=== PATIENT | female | born 1965 | race Hispanic/Latino ===

== ENCOUNTER 2017-03-01 16:19 | Inpatient (IN) | payer MEDICAID, OTHER ==
[2017-03-01 16:19] VITALS: BMI 21.2
[2017-03-01 16:43] LABS: BASO # 0.1 K/uL (0.0-0.2); BASO % 0.8 % (0.0-2.0); EOS % 0.2 % (0.0-4.0); HEMATOCRIT 40.7 % (34.0-47.0); LYMPH # 1.2 K/uL (1.0-4.3); LYMPH % 14.2 % (20.0-40.0); MEAN CORPUSCULAR HEMOGLOBIN 35.2 pg (27.0-31.0); MEAN CORPUSCULAR HGB CONC 34.5 g/dL (33.0-37.0); MEAN PLATELET VOLUME 8.6 fL (7.2-11.7); MONO # 0.6 K/uL (0.0-0.8); MONO % 6.9 % (0.0-10.0); WHITE BLOOD COUNT 8.8 K/uL (4.8-10.8)
[2017-03-01 16:53] LABS: CHLORIDE 91 mmol/L (98-107); POTASSIUM 3.9 mmol/L (3.6-5.2); SODIUM 129 mmol/L (132-148)
[2017-03-01 16:55] LABS: GFR AFRICAN-AMERICAN > 60
[2017-03-01 16:56] LABS: ALB/GLOB RATIO 1.5 (1.0-2.1); ALKALINE PHOSPHATASE 93 U/L (38-126); ALT/SGPT 87 U/L (9-52); AST/SGOT 154 U/L (14-36); BILIRUBIN,TOTAL 1.1 mg/dL (0.2-1.3); BLOOD UREA NITROGEN 4 mg/dL (7-17); CALCIUM 9.1 mg/dl (8.6-10.4); CARBON DIOXIDE 24 mmol/L (22-30); GLUCOSE,RANDOM 101 mg/dL (65-105); TOTAL PROTEIN 8.1 g/dL (6.3-8.3)
[2017-03-01 16:57] LABS: ALCOHOL SERUM < 10 mg/dl (0-10)
[2017-03-01 17:06] LABS: RBC URINE 1 /hpf (0-3); TRANSITIONAL EPITHIAL < 1 /hpf (0-3); URINE BACTERIA RARE (<OCC); URINE BILIRUBIN NEGATIVE (NEGATIVE); URINE COLOR Yellow (YELLOW); URINE GLUCOSE (UA) NORMAL (Normal); URINE KETONE 2+ mg/dL (NEGATIVE); URINE LEUKOCYTE ESTERASE NEG Leu/uL (Negative); URINE PROTEIN 1+ mg/dL (NEGATIVE); URINE UROBILINOGEN NORMAL mg/dL (0.2-1.0); WBC URINE 4 /hpf (0-5)
[2017-03-01 17:07] LABS: URINE BLOOD NEGATIVE (NEGATIVE)
[2017-03-01] MEDS ORDERED: Sodium Chloride 0.9% 1,000 ML IV ONE (17:30)
[2017-03-01] MEDS ORDERED: Sodium Chloride 0.9% 1,000 ML ONE (17:52)
--- NOTE | 2017-03-01 18:29 | C.PDOC ---
History Of Present Illness 51 y/o female presents to the emergency department requesting alcohol detox. Patient notes some episodes of vomiting today and states she feels "shaky." Patient reports last drink was last night. Otherwise, she denies history of seizures with withdrawal, past medical history, suicidal/homicidal ideation at this time. Time Seen by Provider: 03/01/17 16:24 Chief Complaint (Nursing): Substance Abuse History Per: Patient History/Exam Limitations: intoxication Onset/Duration Of Symptoms: Hrs Current Symptoms Are (Timing): Still Present Suicide/Self Injury Attempted (Context): None Modifying Factor(s): Alcohol Associated Symptoms: denies: Suicidal Thoughts, Suicidal Plan Involuntary Hold By: None Recent travel outside of the [place]: No Additional History Per: Patient Past Medical History Reviewed: Historical Data, Nursing Documentation, Vital Signs Vital Signs: Last Vital Signs Temp 97.7 F 03/01/17 18:29 Pulse 72 03/01/17 18:29 Resp 18 03/01/17 18:29 BP 160/90 H 03/01/17 18:29 Pulse Ox 98 03/01/17 19:09 - Medical History PMH: Anxiety, Asthma Denies: Depression, Diabetes, Hepatitis, HIV, HTN, Seizures, Sexually Transmitted Disease Surgical History: No Surg Hx - [facility] Procedures INJECT/INFUSE NEC (03/06/15) PSYCHIA INTERV/EVAL NEC (03/06/15) PSYCHIAT DRUG THERAP NEC (06/22/12) VENOUS PUNCTURE NEC (07/09/13) Family History: States: Unknown Family Hx - Social History Hx Tobacco Use: Yes Hx Alcohol Use: Yes (7- 12 oz cansbeer & delta) Hx Substance Use: Yes (marijuana) - Immunization History Hx Tetanus Toxoid Vaccination: No Review Of Systems Except As Marked, All Systems Reviewed And Found Negative. Gastrointestinal: Positive for: Vomiting Psych: Positive for: Other (+alcohol detox, feeling "shaky"). Negative for: Suicidal ideation Physical Exam - Physical Exam Appears: Non-toxic, Other (mild tremors noted) Skin: Normal Color, Warm, Dry Head: Atraumatic, Normacephalic Eye(s): bilateral: Normal Inspection, EOMI Nose: Normal Oral Mucosa: Moist Neck: Normal ROM, Supple Chest: Symmetrical, No Deformity, No Tenderness Cardiovascular: Rhythm Regular, No Murmur Respiratory: Normal Breath Sounds, No Rales, No Rhonchi, No Wheezing Gastrointestinal/Abdominal: Normal Exam, Soft, No Tenderness Back: Normal Inspection Extremity: Normal ROM, Capillary Refill (less than 2 seconds ) Neurological/Psych: Oriented x3, Normal Speech, Normal Cognition, Other (+mild tremor noted ) Gait: Steady ED Course And Treatment - Laboratory Results Result Diagrams: 03/01/17 16:39 03/01/17 18:41 O2 Sat by Pulse Oximetry: 98 (on RA) Pulse Ox Interpretation: Normal Progress Note: labs ordered and reviewed. Patient received Librium PO, Zofran IV , and IV Fluids. Patient was evaluated by fruit i farmworker. Case discussed with Dr. Holbrook, who agrees with plan for admission. Disposition - Disposition Disposition: HOSPITALIZED Disposition Time: 19:22 Condition: STABLE - Clinical Impression Clinical Impression: Alcohol dependence - PA / SECONDARY ENGLISH TEACHER / Resident Statement MD/DO has reviewed & agrees with the documentation as recorded. - Scribe Statement The provider has reviewed the documentation as recorded by the Scribe (Zayra Smiley) All medical record entries made by the Scribe were at my direction and personally dictated by me. I have reviewed the chart and agree that the record accurately reflects my personal performance of the history, physical exam, medical decision making, and the department course for this patient. I have also personally directed, reviewed, and agree with the discharge instructions and disposition.
[2017-03-01 18:54] LABS: CHLORIDE 97 mmol/L (98-107)
[2017-03-01 18:55] LABS: SODIUM 132 mmol/L (132-148)
[2017-03-01 18:56] LABS: POTASSIUM 3.6 mmol/L (3.6-5.2)
[2017-03-01 18:58] LABS: ALB/GLOB RATIO 1.5 (1.0-2.1); ALKALINE PHOSPHATASE 75 U/L (38-126); ALT/SGPT 74 U/L (9-52); AST/SGOT 125 U/L (14-36); BLOOD UREA NITROGEN 4 mg/dL (7-17); CALCIUM 8.4 mg/dl (8.6-10.4); CARBON DIOXIDE 24 mmol/L (22-30); GFR AFRICAN-AMERICAN > 60; GLUCOSE,RANDOM 86 mg/dL (65-105); TOTAL PROTEIN 6.9 g/dL (6.3-8.3)
[2017-03-01] MEDS ORDERED: Aluminum Hydroxide/Magnesium Hydroxide Susp (30 mL) PO PRN (19:55)
[2017-03-02] MEDS: Multiple Vitamins Tab PO SCH (09:18)
[2017-03-02] MEDS: Pantoprazole 20 mg EC Tab PO SCH (09:18)
[2017-03-02] MEDS ORDERED: Albuterol HFA 90 mcg/actuation (8 g) INH PRN (09:47)
--- NOTE | 2017-03-02 15:04 | PCM.PSYCH ---
Initial Psychiatric Evaluation - Initial Psychiatric Evaluation Type of Admission: Voluntary Legal Status: Capacity Chief Complaint (in patient's own words): "I am drinking too much" History of Present Illness and Precipitating Events: Pt is a 51 year old female who lives by herself in [place]. She currently is unemployed and is supported by her boyfriend. Pt came to [facility] for alcohol detox. She states she drinks 100 ounces of beer and 1/2 bottle of liquor a day for the past 6 months, and it has been affecting her life for years. She was hospitalized at [facility] in 2012 for detox and was sober for 90 days after that. Pt admits to using marijuana a few weeks ago. Pt denies ever taking medications for alcohol detox. She states AA does not help her and she wants other options. She has never been to rehab. She is interested in an outpatient program. PMH: asthma Allergies: none Family Hx: alcoholism in father, mother, brother; brother from alcoholism Current Medications: Active Medications Generic Name Dose Route Start Last Admin Trade Name Freq PRN Reason Stop Dose Admin Al Hydrox/Mg Hydrox/Simethicone 30 ml 03/01/17 19:55 Maalox 30 Ml PO Q6H PRN Indigestion / Heartburn Albuterol 1 puff 03/02/17 09:47 Ventolin Hfa 90 Mcg/Actuation (8 G) INH RQ4 PRN SOB Chlordiazepoxide 25 mg 03/02/17 00:00 03/02/17 12:56 Librium PO 03/05/17 23:59 25 mg Q6 ELMO Administration Taper Chlordiazepoxide 25 mg 03/01/17 19:54 03/02/17 09:18 Librium PO 25 mg Q4H PRN Administration Alcohol Withdrawal Clonidine HCl 0.1 mg 03/01/17 19:54 03/01/17 20:22 Catapres PO 0.1 mg Q4H PRN Administration Symptoms of alcohol withdrawl Folic Acid 1 mg 03/02/17 10:00 03/02/17 09:18 Folic Acid PO 1 mg DAILY ELMO Administration Gabapentin 300 mg 03/01/17 20:00 03/02/17 09:18 Neurontin PO 300 mg BID ELMO Administration Hydroxyzine HCl 25 mg 03/01/17 19:53 Atarax PO Q4H PRN Anxiety Ibuprofen 400 mg 03/01/17 19:53 Motrin Tab PO Q6H PRN Pain, moderate (4-7) Loperamide HCl 2 mg 03/02/17 09:50 03/02/17 11:46 Imodium PO 2 mg Q6H PRN Administration Diarrhea Multivitamins 1 tab 03/02/17 10:00 03/02/17 09:18 Hexavitamin PO 1 tab DAILY ELMO Administration Pantoprazole Sodium 20 mg 03/02/17 10:00 03/02/17 09:18 Protonix Ec Tab PO 20 mg DAILY ELMO Administration Sertraline HCl 25 mg 03/02/17 10:00 03/02/17 12:56 Zoloft PO 25 mg DAILY ELMO Administration Thiamine HCl 100 mg 03/02/17 10:00 03/02/17 09:18 Vitamin B1 Tab PO 100 mg DAILY ELMO Administration Topiramate 25 mg 03/02/17 10:00 03/02/17 12:56 Topamax PO 25 mg BID ELMO Administration Trazodone HCl 50 mg 03/01/17 19:54 03/01/17 22:10 Desyrel PO 50 mg HS PRN Administration Insomnia Past Psychiatric History - Past Psychiatric History Previous Treatment History: None Pertinent Medical Hx (Current Medical&Sleep Prob, Allergies): Allergies Allergy/AdvReac Type Severity Reaction Status Date / Time No Known Allergies Allergy Verified 03/01/17 16:20 Ondansetron ODT [Zofran ODT] 4 mg PO Q6 #14 odt 01/23/17 Ranitidine HCl [Zantac] 150 mg PO BID PRN #30 tablet 01/23/17 Review of Systems - Review of Systems All systems: reviewed and no additional remarkable complaints except - Psychiatric Psychiatric: Abnormal Sleep Pattern, Depression. absent: Auditory Hallucinations, Hallucinations, Homicidal Ideation, Paranoia, Suicidal Ideation Mental Status Examination - Personal Presentation Personal Presentation: Looks older than stated age - Affect Affect: Constricted - Motor Activity Motor Activity: Calm - Reliability in Providing Information Reliability in Providing Information: Good - Speech Speech: Organized - Mood Mood: Depressed, Anxious - Formal Thought Process Formal Thought Process: No Impairment - Obsessions/Compulsions Obsessions: No Compulsions: No - Cognitive Functions Orientation: Person, Place, Situation, Time Sensorium: Alert Attention/Concentration: Attentive Estimate of Intelligence: Average Judgement: Intact, as evidence by: Insight regarding need for hospitalization Memory: Recent intact, as evidence by: Ability to recall events of the day, Remote intact, as evidenced by: Abilit to recall sig. life events - Risk Risk: Withdrawal, Diminished functioning - Strength & Assets Inventory Strength & Assets Inventory: Cooperative - Limitations Limitations: Other DSM 5 DX - DSM 5 DSM 5 Diagnosis: Alcohol withdrawal Alcohol use disorder - severe MURIEL - Recommended/Plan of Treatment Treatment Recommendations and Plan of Treatment: Alcohol dependence/withdrawal: - Start alcohol detox with Librium - Neurontin 300 mg PO BID - Atarax 25 mg PO Q4 PRN anxiety - Vitamins - Support and psychoed - Refer to rehab post detox - Attend AA after dc MURIEL: - Zoloft - Support and CBT Diarrhea -Imodium 33 MIN Projected ELOS: 4-5 days Prognosis: good with treatment Discharge Plan and Discharge Criteria: no wdw sxs Outpt tx - Smoking Cessation Smoking Cessation Initiated: Yes
[2017-03-03] MEDS: Pantoprazole 20 mg EC Tab PO SCH (09:26)
[2017-03-03] MEDS: Multiple Vitamins Tab PO SCH (09:26)
--- NOTE | 2017-03-03 11:58 | PCM.PYCHPN ---
Psychiatric Progress Note - Psychiatric Progress Note Patient seen today, length of contact: 16 min Patient Chief Complaint: "I'm feeling okay." Problems Identified/Issues Discussed: Pt seen and evaluated, chart reviewed, case discussed with staff. Pt states she slept well but her medication made her feel groggy in the morning. Pt states her mood is good and denies any withdrawal symptoms. Pt is compliant with medications. Symptoms are improving - more time needed to stabilize. After caer discussed. Pt plans on going to [employer] [facility] in [facility] upon discharge on Wednesday; pick-up is scheduled for 11:30 am. Support and psychoeducation given. Time: 16 min Mental Status Examination - Cognitive Function Orientation: Person, Place, Situation, Time Memory: Intact Attention: WNL Concentration: WNL Association: WNL Fund of Knowledge: WNL - Mood Mood: Depressed, Anxious - Affect Affect: Broad - Speech Speech: Appropriate - Formal Thought Process Formal Thought Process: No Impairment - Suicidal Ideation Suicidal Ideation: No - Homicidal Ideation Homicidal Ideation: No Goal/Treatment Plan - Goal/Treatment Plan Need for Continued Stay: Remain at risks for inpatient hospitalization, Discharge may exacerbated symptoms Progress Toward Problem(s) and Goals/Treatment Plan: Alcohol: - Librium detox - Gabapentin - As needed meds - gabapentin - Attend groups and activities. - [place] and CBT MURIEL: - Atarax - Support and CBT Diarrhea -Imodium 16 min Estimated Date of D/C: 03/05/17 (No wdw sxs)
[2017-03-04] MEDS: Pantoprazole 20 mg EC Tab PO SCH (10:19)
[2017-03-04] MEDS: Multiple Vitamins Tab PO SCH (10:19)
[2017-03-04 11:59] LABS: CHLORIDE 100 mmol/L (98-107); SODIUM 136 mmol/L (132-148)
[2017-03-04 12:00] LABS: POTASSIUM 3.8 mmol/L (3.6-5.2)
[2017-03-04 12:02] LABS: ALKALINE PHOSPHATASE 71 U/L (38-126); ALT/SGPT 90 U/L (9-52); AST/SGOT 124 U/L (14-36); BILIRUBIN,TOTAL 0.5 mg/dL (0.2-1.3); BLOOD UREA NITROGEN 5 mg/dL (7-17); CARBON DIOXIDE 24 mmol/L (22-30); GFR AFRICAN-AMERICAN > 60; GLUCOSE,RANDOM 95 mg/dL (65-105); TOTAL PROTEIN 7.9 g/dL (6.3-8.3)
[2017-03-04 12:03] LABS: CALCIUM 9.6 mg/dl (8.6-10.4)
--- NOTE | 2017-03-04 12:45 | PCM.PYCHPN ---
Psychiatric Progress Note - Psychiatric Progress Note Patient seen today, length of contact: 16 min Patient Chief Complaint: "I feel groggy." Problems Identified/Issues Discussed: Pt seen and evaluated, chart reviewed, case discussed with staff. Pt states she slept well but her medication made her feel groggy in the morning. She states she felt drunk and dizzy, and could not walk in a straight line. Pt states her mood is good and denies any withdrawal symptoms. Pt is compliant with medications. Symptoms are improving - more time needed to stabilize. After care discussed. Pt plans on going to [employer] [facility] in [place] upon discharge on Wednesday; pick-up is scheduled for 11:30 am. Support and psychoeducation given. Time: 16 min Medical Record Reviewed: Yes Mental Status Examination - Cognitive Function Orientation: Person, Place, Situation, Time Memory: Intact Attention: WNL Concentration: WNL Association: WNL Fund of Knowledge: WNL - Mood Mood: Anxious - Affect Affect: Broad - Speech Speech: Appropriate - Formal Thought Process Formal Thought Process: No Impairment - Suicidal Ideation Suicidal Ideation: No - Homicidal Ideation Homicidal Ideation: No Goal/Treatment Plan - Goal/Treatment Plan Need for Continued Stay: Remain at risks for inpatient hospitalization, Discharge may exacerbated symptoms Progress Toward Problem(s) and Goals/Treatment Plan: Alcohol: - Librium detox - Gabapentin - As needed meds - gabapentin - Attend groups and activities. - [place] and CBT MURIEL: - Atarax - Support and CBT Diarrhea -Imodium 16 min Estimated Date of D/C: 03/05/17 (No wdw sxs)
[2017-03-05 06:18] VITALS: PULSE 70
--- NOTE | 2017-03-05 08:53 | PCM.PYCHDC ---
Mental Status Examination - Mental Status Examination Orientation: Person, Place, Situation, Time Discharge Summary - Discharge Note Laboratory Data: Abnormal Lab Results 03/04/17 11:46 Sodium 136 Potassium 3.8 Chloride 100 Carbon Dioxide 24 Anion Gap 17 BUN 5 L Creatinine 0.6 L Est GFR ( Amer) > 60 Est GFR (Non-Af Amer) > 60 Random Glucose 95 Calcium 9.6 Total Bilirubin 0.5 AST 124 H ALT 90 H D Alkaline Phosphatase 71 Total Protein 7.9 Albumin 5.3 H D Globulin 2.6 Albumin/Globulin Ratio 2.0 Consultations:: List each consultation separately and include: 1. Reason for request. 2. Findings. 3. Follow-up Summary of Hospital Course include:: 1. Description of specific treatment plan utilized for patients during their course of treatmen. 2. Summarize the time- course for resolution of acute symptoms and/or regressed behaviors. 3. Describe issues identified and worked on during hospitalization. 4. Describe medication utilized. 5. Describe medical problems identified and treated. 6. Reassessment of suicide risk Summary of Hospital Course: Pt is a 51 year old female who lives by herself in [place]. She currently is unemployed and is supported by her boyfriend. Pt came to [facility] for alcohol detox. She states she drinks 100 ounces of beer and 1/2 bottle of liquor a day for the past 6 months, and it has been affecting her life for years. She was hospitalized at [facility] in 2012 for detox and was sober for 90 days after that. Pt admits to using marijuana a few weeks ago. Pt denies ever taking medications for alcohol detox. She states AA does not help her and she wants other options. She has never been to rehab. She is interested in an outpatient program. PMH: asthma Allergies: none Family Hx: alcoholism in father, mother, brother; brother from alcoholism - Final Diagnosis (DSM 5) Condition upon Discharge: STABLE Disposition: HOME/ ROUTINE Follow-up Treatment Plan: Alcohol: - Librium detox - Gabapentin - As needed meds - gabapentin - Attend groups and activities. - [place] and CBT MURIEL: - Atarax - Support and CBT Diarrhea -Imodium 16 min Prescriptions/Medication Reconciliation: Albuterol HFA [Ventolin HFA 90 mcg/actuation (8 g)] 1 puff INH RQ4 PRN #1 inhaler PRN Reason: SOB Pantoprazole [Protonix EC Tab] 20 mg PO DAILY #30 ect Sertraline [Zoloft] 50 mg PO DAILY #30 tab traZODone [Desyrel] 50 mg PO HS PRN #30 tab PRN Reason: Insomnia
[2017-03-05] MEDS: Multiple Vitamins Tab PO SCH (09:09)
[2017-03-05] MEDS: Pantoprazole 20 mg EC Tab PO SCH (09:09)
[2017-03-05 09:27] VITALS: BP 125/85; RESP 16; TEMP 98.2; O2SAT 98
--- NOTE | 2017-03-05 15:31 | PCM.PYCHDC ---
Mental Status Examination - Mental Status Examination Orientation: Person, Place, Situation, Time Memory: Intact Mood: Neutral Affect: Broad Speech: Appropriate Attention: WNL Concentration: WNL Association: WNL Fund of Knowledge: WNL Formal Thought Process: No Impairment Suicidal Ideation: No Current Homicidal Ideation?: No Discharge Summary - Discharge Note Reason for Hospitalization: Alcohol detox Consultations:: List each consultation separately and include: 1. Reason for request. 2. Findings. 3. Follow-up Summary of Hospital Course include:: 1. Description of specific treatment plan utilized for patients during their course of treatmen. 2. Summarize the time- course for resolution of acute symptoms and/or regressed behaviors. 3. Describe issues identified and worked on during hospitalization. 4. Describe medication utilized. 5. Describe medical problems identified and treated. 6. Reassessment of suicide risk Summary of Hospital Course: The patient was admitted and started on alcohol detox protocol. Patient was given psychotherapy, support, psychoeducation, and medications. [place] and CBT used. The patient attended groups and activities, as well as milieu therapy. All risks and benefits of medications are discussed and patient understood and agreed. After care discussed with the patient- she will be going to [facility] directly from detox. - Final Diagnosis (DSM 5) DSM 5: Alcohol withdrawal Alcohol use disorder - severe MURIEL Disposition: REHAB FACILITY/REHAB UNIT Follow-up Treatment Plan: Continue below medications after discharge. Follow after care plan as discussed - [facility]. Use relapse prevention skills Return to ER or call 911 if suicidal, homicidal or symptoms relapse. Stay away from stress, alcohol and drugs. See primary doctor once a year Prescriptions/Medication Reconciliation: Albuterol HFA [Ventolin HFA 90 mcg/actuation (8 g)] 1 puff INH RQ4 PRN #1 inhaler PRN Reason: SOB Pantoprazole [Protonix EC Tab] 20 mg PO DAILY #30 ect Sertraline [Zoloft] 50 mg PO DAILY #30 tab traZODone [Desyrel] 50 mg PO HS PRN #30 tab PRN Reason: Insomnia
== END 2017-03-05 11:30 | DRG 751 ==
LOC: C.ER 16:19 → C.7D 18:30
PROVIDERS: ADMIT Psychiatry & Neurology Psychiatry; ATTEND Psychiatry & Neurology Psychiatry
PROC: HZ2ZZZZ Detoxification Services for Substance Abuse Treatment (ICD-10-PCS; principal; 2017-03-01)
PROC: HZ56ZZZ Individual Psychotherapy for Substance Abuse Treatment, Psychoeducation (ICD-10-PCS; 2017-03-01)
PROC: HZ59ZZZ Individual Psychotherapy for Substance Abuse Treatment, Supportive (ICD-10-PCS; 2017-03-01)
DX: F10.239 Alcohol dependence with withdrawal, unspecified (principal); F41.1 Generalized anxiety disorder; F12.90 Cannabis use, unspecified, uncomplicated; J45.909 Unspecified asthma, uncomplicated; Z81.1 Family history of alcohol abuse and dependence; Z87.891 Personal history of nicotine dependence

== ENCOUNTER 2017-08-25 09:11 | Emergency (ER) | payer MEDICAID, OTHER ==
[2017-08-25 09:11] VITALS: BMI 21.2
[2017-08-25 09:17] VITALS: BP 134/87; PULSE 85; RESP 18; TEMP 98.1; O2SAT 95
[2017-08-25 09:57] LABS: BASO # 0.1 K/uL (0.0-0.2); BASO % 1.2 % (0.0-2.0); EOS # 0.2 K/uL (0.0-0.7); EOS % 2.7 % (0.0-4.0); HEMATOCRIT 44.5 % (34.0-47.0); LYMPH # 2.4 K/uL (1.0-4.3); LYMPH % 35.1 % (20.0-40.0); MEAN CELL VOLUME 102.9 fL (81.0-99.0); MEAN CORPUSCULAR HEMOGLOBIN 35.2 pg (27.0-31.0); MEAN CORPUSCULAR HGB CONC 34.2 g/dL (33.0-37.0); MEAN PLATELET VOLUME 8.6 fL (7.2-11.7); MONO # 0.6 K/uL (0.0-0.8); MONO % 9.4 % (0.0-10.0); RED CELL DISTRIBUTION WIDTH 12.9 % (11.5-14.5); WHITE BLOOD COUNT 6.8 K/uL (4.8-10.8)
[2017-08-25 10:08] LABS: ALB/GLOB RATIO 1.5 (1.0-2.1); ALCOHOL SERUM 216 mg/dl (0-10); ALKALINE PHOSPHATASE 60 U/L (38-126); ALT/SGPT 65 U/L (9-52); AST/SGOT 50 U/L (14-36); BILIRUBIN,TOTAL 0.6 mg/dL (0.2-1.3); BLOOD UREA NITROGEN 5 mg/dL (7-17); CALCIUM 8.6 mg/dl (8.6-10.4); CARBON DIOXIDE 25 mmol/L (22-30); CHLORIDE 97 mmol/L (98-107); GFR AFRICAN-AMERICAN > 60; GLUCOSE,RANDOM 81 mg/dL (65-105); POTASSIUM 4.1 mmol/L (3.6-5.2); SODIUM 135 mmol/L (132-148); TOTAL PROTEIN 7.6 g/dL (6.3-8.3)
[2017-08-25 10:10] LABS: RBC URINE < 1 /hpf (0-3); URINE BACTERIA RARE (<OCC); URINE BILIRUBIN NEGATIVE (NEGATIVE); URINE BLOOD NEGATIVE (NEGATIVE); URINE COLOR Straw (YELLOW); URINE GLUCOSE (UA) NORMAL (Normal); URINE KETONE NEGATIVE (NEGATIVE); URINE LEUKOCYTE ESTERASE NEG Leu/uL (Negative); URINE PROTEIN NEGATIVE (NEGATIVE); URINE UROBILINOGEN NORMAL mg/dL (0.2-1.0); WBC URINE < 1 /hpf (0-5)
--- NOTE | 2017-08-25 10:52 | C.PDOC ---
History Of Present Illness 52 y/o female presents to ED requesting ETOH detox. Patient states her last drink was earlier today. Denies IV drug use, SI, HI, nausea, vomiting, withdrawal symptoms or any other complaints at this time. Time Seen by Provider: 08/25/17 09:32 Chief Complaint (Nursing): Substance Abuse History Per: Patient History/Exam Limitations: no limitations Onset/Duration Of Symptoms: Hrs Current Symptoms Are (Timing): Still Present Suicide/Self Injury Attempted (Context): None Modifying Factor(s): Alcohol Associated Symptoms: denies: Anger, Anxiety, Suicidal Thoughts Past Medical History Reviewed: Historical Data, Nursing Documentation, Vital Signs Vital Signs: Last Vital Signs Temp 98.1 F 08/25/17 09:13 Pulse 85 08/25/17 09:13 Resp 18 08/25/17 09:13 BP 134/87 08/25/17 09:13 Pulse Ox 95 08/25/17 12:17 - Medical History PMH: Anxiety, Asthma, Depression Surgical History: No Surg Hx - [facility] Procedures DETOXIFICATION SERVICES FOR SUBSTANCE ABUSE TREATMENT (03/01/17) INDIV PSYCHOTHERAPY FOR SUBSTANCE ABUSE TREATMENT, SUPPORT (03/01/17) INDIV PSYCHOTHERAPY FOR SUBSTANCE ABUSE, PSYCHOEDUCATION (03/01/17) INJECT/INFUSE NEC (03/06/15) PSYCHIA INTERV/EVAL NEC (03/06/15) PSYCHIAT DRUG THERAP NEC (06/22/12) VENOUS PUNCTURE NEC (07/09/13) Family History: States: No Known Family Hx - Social History Hx Tobacco Use: Yes Hx Alcohol Use: Yes Hx Substance Use: Yes (LAST USED "FEW WEEKS AGO") - Immunization History Hx Tetanus Toxoid Vaccination: No Hx Influenza Vaccination: No Hx Pneumococcal Vaccination: No Review Of Systems Constitutional: Negative for: Fever, Chills Gastrointestinal: Negative for: Nausea, Vomiting, Abdominal Pain Skin: Negative for: Rash Psych: Negative for: Anxiety, Suicidal ideation, Withdrawal Physical Exam - Physical Exam Appears: Non-toxic, No Acute Distress Skin: Normal Color, Warm, Dry, No Rash Head: Atraumatic, Normacephalic Eye(s): bilateral: Normal Inspection, EOMI Nose: Normal Oral Mucosa: Moist Neck: Normal ROM, Supple Chest: Symmetrical Cardiovascular: Rhythm Regular Respiratory: Normal Breath Sounds, No Accessory Muscle Use, No Rales, No Rhonchi , No Wheezing Gastrointestinal/Abdominal: Soft, No Tenderness, No Guarding, No Rebound Neurological/Psych: Oriented x3, Normal Speech Gait: Steady ED Course And Treatment - Laboratory Results Result Diagrams: 08/25/17 09:50 08/25/17 09:50 O2 Sat by Pulse Oximetry: 95 (RA) Pulse Ox Interpretation: Normal Progress Note: UA, Blood work all negative. Patient is prescreened and is pending admission for detox. Patient eloped prior to being admited for detox bed Disposition - Disposition Disposition: ELOPEMENT - ER ONLY Disposition Time: 11:00 Condition: STABLE Forms: [facility] (Welsh) - Clinical Impression Clinical Impression: Alcohol dependence - PA / PERSONNEL PSYCHOLOGIST / Resident Statement MD/DO has reviewed & agrees with the documentation as recorded. - Scribe Statement The provider has reviewed the documentation as recorded by the Arianeibpedro Obrien All medical record entries made by the Arianeibpedro were at my direction and personally dictated by me. I have reviewed the chart and agree that the record accurately reflects my personal performance of the history, physical exam, medical decision making, and the department course for this patient. I have also personally directed, reviewed, and agree with the discharge instructions and disposition.
== END 2017-08-25 09:35 | disposition left against medical advice (07) ==
LOC: C.ER 09:11
DX: F10.20 Alcohol dependence, uncomplicated (principal); Y90.7 Blood alcohol level of 200-239 mg/100 ml

== ENCOUNTER 2017-12-13 09:21 | Day surgery (SDC) | payer OTHER ==
[2017-12-13 09:43] VITALS: BMI 22.1
[2017-12-13 10:00] VITALS: TEMP 98.6; O2SAT 100
[2017-12-13] MEDS ORDERED: Propofol 10 mg/ml Inj (20 ML) ONE (11:52)
[2017-12-13 14:18] VITALS: BP 134/72; PULSE 68; RESP 18
== END 2017-12-13 13:30 | disposition home or self-care (01) ==
LOC: C.ENDO 09:21
PROVIDERS: ATTEND Internal Medicine
DX: K64.8 Other hemorrhoids (principal); K57.90 Diverticulosis of intestine, part unspecified, without perforation or abscess without bleeding
CPT/HCPCS: 45378; J2704

== ENCOUNTER 2018-07-13 16:06 | Inpatient (IN) | payer OTHER ==
[2018-07-13 16:07] VITALS: BMI 23.0
--- NOTE | 2018-07-13 16:20 | C.PDOC ---
History Of Present Illness Patient presents from [place] prescreened for detox. Daily EtOH use, last drink was yesterday, had 6 beers and 6 shots. Also admits to marijuana use. No other illicit drug use. No SI/HI. Reports that she had tremors earlier today but received Ativan at [place] and that her symptoms have improved. Time Seen by Provider: 07/13/18 16:12 Chief Complaint (Nursing): Medical Clearance Past Medical History Vital Signs: Last Vital Signs Temp 98.3 F 07/13/18 16:10 Pulse 71 07/13/18 16:10 Resp 15 07/13/18 16:10 BP 126/85 07/13/18 16:10 Pulse Ox 96 07/13/18 16:10 - Medical History PMH: Anxiety, Asthma, COPD, Depression, Diverticulitis (+ MOTHER AND SISTER) Denies: Diabetes, Hepatitis, HIV, HTN, Chronic Kidney Disease, Seizures, Sexually Transmitted Disease Surgical History: Denies: Pacemaker - [facility] Procedures DETOXIFICATION SERVICES FOR SUBSTANCE ABUSE TREATMENT (03/01/17) DRAINAGE OF PELVIC CAVITY, PERCUTANEOUS APPROACH, DIAGNOSTIC (09/08/17) EXCISION OF LARGE INTESTINE, OPEN APPROACH (01/06/18) EXCISION OF RECTUM, OPEN APPROACH (01/06/18) EXCISION OF SIGMOID COLON, OPEN APPROACH (09/28/17) EXCISION OF SMALL INTESTINE, OPEN APPROACH (01/06/18) INDIV PSYCHOTHERAPY FOR SUBSTANCE ABUSE TREATMENT, SUPPORT (03/01/17) INDIV PSYCHOTHERAPY FOR SUBSTANCE ABUSE, PSYCHOEDUCATION (03/01/17) INJECT/INFUSE NEC (03/06/15) INSPECTION OF BLADDER, ENDO (09/28/17) INSPECTION OF LOWER INTESTINAL TRACT, ENDO (09/28/17) PSYCHIA INTERV/EVAL NEC (03/06/15) PSYCHIAT DRUG THERAP NEC (06/22/12) RESECTION OF APPENDIX, OPEN APPROACH (01/06/18) VENOUS PUNCTURE NEC (07/09/13) Family History: States: Unknown Family Hx - Social History Hx Tobacco Use: Yes Hx Alcohol Use: Yes (OCCASIONAL) Hx Substance Use: Yes (HX MARIJUANA USE- STOPPED ABOUT 1 MON AGO) - Immunization History Hx Tetanus Toxoid Vaccination: No Hx Influenza Vaccination: No Hx Pneumococcal Vaccination: No Review Of Systems Except As Marked, All Systems Reviewed And Found Negative. Constitutional: Negative for: Fever, Chills Cardiovascular: Negative for: Chest Pain Respiratory: Negative for: Cough, Shortness of Breath Gastrointestinal: Negative for: Nausea, Vomiting, Abdominal Pain, Diarrhea Neurological: Negative for: Weakness, Numbness, Change in Speech, Confusion, Seizures, Altered Mental Status Psych: Positive for: Withdrawal. Negative for: Suicidal ideation Physical Exam - Physical Exam Appears: Well, Non-toxic, No Acute Distress Skin: Normal Color, Warm, Dry Head: Atraumatic Eye(s): bilateral: Normal Inspection Oral Mucosa: Moist Tongue: Other (No fasciculations) Chest: Symmetrical Cardiovascular: Rhythm Regular Respiratory: Normal Breath Sounds Gastrointestinal/Abdominal: Normal Exam Extremity: Other (No tremors) Neurological/Psych: Oriented x3, Normal Speech ED Course And Treatment O2 Sat by Pulse Oximetry: 96 Medical Decision Making Medical Decision Making: patient admitted to detox bed under Dr. Holbrook. Disposition - Disposition Disposition: HOSPITALIZED Disposition Time: 16:21 Condition: FAIR - Clinical Impression Clinical Impression: Alcohol withdrawal, Alcohol dependence
--- NOTE | 2018-07-13 19:33 | PCM.BM ---
<Abdiaziz Ny - Last Filed: 07/13/18 19:32> Treatment Plan Problems - Problems identified on initial assessmt potential for alcohol withdrawal Date Initiated: 07/13/18 Time Initiated: 19:32 Status: Active Treatment assets and liabiliti Patient Assests: cognitively intact Patient Liabilities: substance abuse, medical problems - Milieu Protocol Maintain good personal hygiene: daily Encourage regular showers, daily Remind patient to perform daily oral care, daily Assist patient to perform ADL's Conduct patient checks and document Observation sheet: Q15 minutes Maintain personal safety: every shift Educate patient to report safety concerns to staff, every shift Monitor environment for contraband/sharps Medication safety: Monitor for expected outcome, potential side effects: every shift, Assess barriers to learning: every shift, Assess readiness for medication education: every shift <Lu Holbrook - Last Filed: 07/16/18 18:09> - Diagnosis (1) Alcohol dependence Status: Acute Interventions: 07/14/18 20:00 * Assess 7x/week regarding severity of withdrawal * Educate regarding risks, benefits, side effects and alternatives of medic ations * Use Motivational Interviewing for abstinence * Use CBT for relapse prevention * Medication management for withdrawal symptoms * Encourage medication assisted treatment
[2018-07-14] MEDS: Multiple Vitamins Tab PO SCH (09:26)
--- NOTE | 2018-07-14 10:11 | PCM.PSYCH ---
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 She was in rehab once at [place] [facility] She smokes MJ occasionally, smokes 1 ppd cig, and 6 shots+6x25 oz beers a day She describes significant withdrawal sxs, hx of DTs but no seizures Pt also feels depressed, tearful, anhedonic and very anxious Past psych hx: Depression, SI but no admission or proper tx Medical hx: Significant GI issues, severe diverticulitis (had operation) and COPD Family psych hx: Parents and brother abused alcohol a lot Current Medications: Active Medications Generic Name Dose Route Start Last Admin Trade Name Freq PRN Reason Stop Dose Admin Chlordiazepoxide 25 mg 07/13/18 18:27 Librium PO Q4H PRN Alcohol Withdrawal Chlordiazepoxide 25 mg 07/14/18 00:00 07/14/18 05:32 Librium PO 07/17/18 23:59 25 mg Q6 ELMO Administration Taper Clonidine HCl 0.1 mg 07/13/18 18:42 07/13/18 21:31 Catapres PO 0.1 mg Q4H PRN Administration Symptoms of alcohol withdrawl Folic Acid 1 mg 07/14/18 10:00 07/14/18 09:26 Folic Acid PO 1 mg DAILY ELMO Administration Hydroxyzine HCl 25 mg 07/13/18 18:43 07/13/18 21:31 Atarax PO 25 mg Q4H PRN Administration Anxiety Ibuprofen 600 mg 07/13/18 20:02 07/13/18 20:28 Motrin Tab PO 600 mg TID PRN Administration Pain, moderate (4-7) Multivitamins 1 tab 07/14/18 10:00 07/14/18 09:26 Hexavitamin PO 1 tab DAILY ELMO Administration Thiamine HCl 100 mg 07/14/18 10:00 07/14/18 09:26 Vitamin B1 Tab PO 100 mg DAILY ELMO Administration Trazodone HCl 50 mg 07/13/18 18:42 07/13/18 21:31 Desyrel PO 50 mg HS PRN Administration Insomnia Past Psychiatric History - Past Psychiatric History Previous Treatment History: None Pertinent Medical Hx (Current Medical&Sleep Prob, Allergies): Allergies Allergy/AdvReac Type Severity Reaction Status Date / Time No Known Allergies Allergy Verified 07/13/18 08:38 No Known Home Med 07/13/18 Review of Systems - Neurological Neurological: Tremor - Psychiatric Psychiatric: Abnormal Sleep Pattern, Anhedonia, Anxiety, Depression. absent: Hallucinations, Homicidal Ideation, Paranoia, Suicidal Ideation Mental Status Examination - Personal Presentation Personal Presentation: Looks stated age - Affect Affect: Constricted - Motor Activity Motor Activity: Calm - Reliability in Providing Information Reliability in Providing Information: Good - Speech Speech: Organized - Mood Mood: Depressed, Anxious - Formal Thought Process Formal Thought Process: No Impairment - Cognitive Functions Orientation: Person, Place, Situation, Time Sensorium: Alert Attention/Concentration: Attentive Estimate of Intelligence: Average Judgement: Intact, as evidence by: Insight regarding need for hospitalization Memory: Recent intact, as evidence by: Ability to recall events of the day, Remote intact, as evidenced by: Abilit to recall sig. life events - Risk Risk: Withdrawal, Diminished functioning - Strength & Assets Inventory Strength & Assets Inventory: Cooperative DSM 5 DX - DSM 5 DSM 5 Diagnosis: Alcohol withdrawal Alcohol use do - severe Major depressive d/o - single severe Cannabis use d/o - moderte Tobacco use d/o - severe - Recommended/Plan of Treatment Treatment Recommendations and Plan of Treatment: Librium detox Gabapentin Lexapro for depression Groups and activites CBT and MS MAT started: Naltrexone All risks of meds discussed - she understood and agreed Refer to IOP 33 min Projected ELOS: 4 days - Smoking Cessation Smoking Cessation Initiated: Yes
[2018-07-14] MEDS: Pantoprazole 20 mg EC Tab PO SCH (11:16)
[2018-07-14] MEDS: guaiFENesin 100 mg/5 ml Syrup UD PO PRN ×2 (11:40→22:05)
[2018-07-15] MEDS: guaiFENesin 100 mg/5 ml Syrup UD PO PRN ×2 (09:19→21:04)
[2018-07-15] MEDS: Multiple Vitamins Tab PO SCH (09:21)
[2018-07-15] MEDS: Pantoprazole 20 mg EC Tab PO SCH (09:21)
--- NOTE | 2018-07-15 14:34 | PCM.PYCHPN ---
Psychiatric Progress Note - Psychiatric Progress Note Patient seen today, length of contact: 19 min Patient Chief Complaint: "I'm better" Problems Identified/Issues Discussed: The pt is seen, chart reviewed, case discussed with staff. The pt is compliant with medications and reports no side-effects. Symptoms are improving but needs more time to stabilize. After care discussed, support and psychoeducation given. Medication Change: Yes (detox adjusted) Medical Record Reviewed: Yes Mental Status Examination - Cognitive Function Orientation: Person, Place, Situation, Time Memory: Intact Attention: Poor Concentration: Poor Association: WNL Fund of Knowledge: WNL - Mood Mood: Depressed, Anxious - Affect Affect: Constricted - Speech Speech: Appropriate - Formal Thought Process Formal Thought Process: No Impairment - Suicidal Ideation Suicidal Ideation: No - Homicidal Ideation Homicidal Ideation: No Goal/Treatment Plan - Goal/Treatment Plan Need for Continued Stay: Discharge may exacerbated symptoms, Severe functional impairment Progress Toward Problem(s) and Goals/Treatment Plan: Continue medications Support and psychoeducation daily Attend groups and activities daily After care planning by counselors Same as 07/14/18 She agreed to stay and complete detox - was hinting leaving today bc of ex- bringing money
[2018-07-16 08:59] VITALS: O2SAT 97
[2018-07-16] MEDS: Pantoprazole 20 mg EC Tab PO SCH (09:27)
[2018-07-16] MEDS: Multiple Vitamins Tab PO SCH (09:27)
[2018-07-16] MEDS ORDERED: Albuterol HFA 90 mcg/actuation (8 g) INH PRN (14:19)
[2018-07-16 14:24] VITALS: BP 134/83; PULSE 67; RESP 18; TEMP 98.4
--- NOTE | 2018-07-16 18:16 | PCM.PYCHDC ---
Mental Status Examination - Mental Status Examination Orientation: Person, Place, Situation, Time Memory: Intact Mood: Neutral Affect: Other (Appropriate) Speech: Appropriate Attention: WNL Concentration: WNL Association: WNL Fund of Knowledge: WNL Formal Thought Process: No Impairment Description of patient's judgement and insight: Fair Psychotic Thoughts and Behaviors: None Suicidal Ideation: No Current Homicidal Ideation?: No Discharge Summary - Discharge Note Reason for Hospitalization: Alcohol use disorder. Cannabis use disorder Major depressive disorder Laboratory Data: Reviewed Consultations:: List each consultation separately and include: 1. Reason for r equest. 2. Findings. 3. Follow-up Summary of Hospital Course include:: 1. Description of specific treatment plan utilized for patients during their course of treatmen. 2. Summarize the time- course for resolution of acute symptoms and/or regressed behaviors. 3. Describe issues identified and worked on during hospitalization. 4. Describe medication utilized. 5. Describe medical problems identified and treated. 6. 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 She was in rehab once at [facility] [place] She smokes MJ occasionally, smokes 1 ppd cig, and 6 shots+6x25 oz beers a day She describes significant withdrawal sxs, hx of DTs but no seizures Pt also feels depressed, tearful, anhedonic and very anxious Past psych hx: Depression, SI but no admission or proper tx Medical hx: Significant GI issues, severe diverticulitis (had operation) and COPD Family psych hx: Parents and brother abused alcohol a lot. During her stay in the hospital patient was treated with Librium taper for alcohol withdrawal symptoms. She was also started on Lexapro and other when necessary medications. Patient started feeling better with the above treatment. Today patient was stable and ready for discharge. At the time of evaluation and discharge, patient was calm and cooperative, had no delusions, no auditory or visual hallucinations, no suicidal ideations or homicidal ideations. Patient was discharged in a stable condition. [facility] after discharge from the hospital. - Final Diagnosis (DSM 5) Condition upon Discharge: FAIR Disposition: HOME/ ROUTINE Follow-up Treatment Plan: [facility] after discharge from the hospital. Prescriptions/Medication Reconciliation: RX: Escitalopram [Lexapro] 10 mg PO DAILY #30 tab RX: Naltrexone [Revia] 50 mg PO DAILY #30 tab RX: Pantoprazole [Protonix EC Tab] 20 mg PO DAILY #30 ect RX: traZODone [Desyrel] 50 mg PO HS PRN #30 tab PRN Reason: Insomnia - Smoking Cessation Smoking Cessation Medication prescribed: Yes - Antipsychotic Medications Pt discharged on 2 or more routine antipsychotic medications: No
== END 2018-07-16 15:27 | disposition home or self-care (01) | DRG 750 ==
LOC: C.ER 16:06 → C.7D 16:17
PROVIDERS: ADMIT Psychiatry & Neurology Psychiatry; ATTEND Psychiatry & Neurology Psychiatry
PROC: HZ2ZZZZ Detoxification Services for Substance Abuse Treatment (ICD-10-PCS; principal; 2018-07-13)
PROC: GZ3ZZZZ Medication Management (ICD-10-PCS; 2018-07-13)
PROC: HZ46ZZZ Group Counseling for Substance Abuse Treatment, Psychoeducation (ICD-10-PCS; 2018-07-13)
PROC: HZ59ZZZ Individual Psychotherapy for Substance Abuse Treatment, Supportive (ICD-10-PCS; 2018-07-13)
DX: F10.231 Alcohol dependence with withdrawal delirium (principal); J44.9 Chronic obstructive pulmonary disease, unspecified; F32.9 Major depressive disorder, single episode, unspecified; F12.90 Cannabis use, unspecified, uncomplicated; F17.210 Nicotine dependence, cigarettes, uncomplicated